=== PATIENT | male | born 1975 | race Caucasian/White ===

== ENCOUNTER 2018-11-06 09:14 | Emergency (ER) | payer OTHER ==
[2018-11-06 09:21] VITALS: BP 150/100; PULSE 78; TEMP 98; BMI 28.8
[2018-11-06] MEDS ORDERED: KETOROLAC TROMETHAMINE 60 MG/2 ML VIAL IM ONE (09:53)
[2018-11-06] MEDS ORDERED: KETOROLAC TROMETHAMINE 60 MG/2 ML VIAL ONE (10:01)
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
== END 2018-11-06 10:24 | disposition home or self-care (01) ==
LOC: JERFT 09:14
PROC: 3E0233Z Introduction of Anti-inflammatory into Muscle, Percutaneous Approach (ICD-10-PCS; principal; 2018-11-06)
DX: S13.4XXA Sprain of ligaments of cervical spine, initial encounter (principal); V49.49XA Driver injured in collision with other motor vehicles in traffic accident, initial encounter; Y92.414 Local residential or business street as the place of occurrence of the external cause; Y93.89 Activity, other specified; Y99.9 Unspecified external cause status
CPT/HCPCS: 99281-25

== ENCOUNTER 2021-03-20 16:03 | Emergency (ER) | payer OTHER ==
[2021-03-20 16:14] VITALS: TEMP 97.7; BMI 28.7
[2021-03-20] MEDS ORDERED: KETOROLAC TROMETHAMINE 30 MG/1 ML VIAL IVPUSH ONE (18:15)
[2021-03-20] MEDS ORDERED: SODIUM CHLORIDE 1,000 ML IV STA (18:16)
[2021-03-20] MEDS ORDERED: KETOROLAC TROMETHAMINE 30 MG/1 ML VIAL ONE (18:21)
[2021-03-20 18:53] LABS: EPI CELLS 2 /uL (0-25.1); HYALINE CASTS 0 /uL (0-3.1); PH,URINE 5.5 (5.0-8.0); URINE APPEARANCE CLEAR; URINE BACTERIA 1 /uL (0-1359); URINE BILIRUBIN NEGATIVE (NEGATIVE); URINE COLOR YELLOW; URINE GLUCOSE (UA) NEGATIVE (NEGATIVE); URINE KETONE TRACE (NEGATIVE); URINE LEUK ESTERASE NEGATIVE (NEGATIVE); URINE NITRITE NEGATIVE (NEGATIVE); URINE PROTEIN NEGATIVE (NEGATIVE); URINE RBC 35 /uL (0-23.9); URINE UROBILINOGEN 0.2 mg/dL (0.2-1.0); URINE WBC 1 /uL (0-25.8)
[2021-03-20 19:15] LABS: BASO % 0.2 % (0-2.0); EOS % 0.2 % (0-4.5); HEMATOCRIT 45.4 % (35.4-49); HEMOGLOBIN 15.5 GM/dL (11.7-16.9); MCH 32.9 pg (25.7-33.7); MCHC 34.1 g/dl (32.0-35.9); MEAN CELL VOLUME 96.3 fl (80-96); MONO % 8.4 % (3.8-10.2); NEUT % 75.2 % (42.8-82.8); PLATELET COUNT 276 10^3/uL (134-434); RBC 4.71 M/mm3 (4.00-5.60); RDW 13.8 % (11.9-15.9); WHITE BLOOD COUNT 10.9 K/mm3 (4.0-10.0)
[2021-03-20] MEDS ORDERED: FAMOTIDINE 20 MG TABLET PO ONE (19:15)
[2021-03-20] MEDS ORDERED: MAG HYDROX/AL HYDROX/SIMETH -MYLANTA- ORAL SUSPENSION PO ONE (19:16)
[2021-03-20] MEDS ORDERED: MAG HYDROX/AL HYDROX/SIMETH 30 ML UNIT-DOSE CUP ONE (19:21)
[2021-03-20] MEDS ORDERED: FAMOTIDINE 20 MG TABLET ONE (19:21)
[2021-03-20 19:37] LABS: ALBUMIN 4.1 g/dl (3.4-5.0); CALCIUM 9.5 mg/dL (8.5-10.1)
[2021-03-20 19:38] LABS: BLOOD UREA NITROGEN 10.7 mg/dL (7-18)
[2021-03-20 19:40] LABS: CREATININE 1.1 mg/dL (0.55-1.3)
[2021-03-20 19:42] LABS: BILIRUBIN,TOTAL 0.3 mg/dL (0.2-1); TOT PROT 7.9 g/dl (6.4-8.2)
[2021-03-20] MEDS ORDERED: ACETAMINOPHEN INJECTION 100 ML IVPB ONE (20:19)
[2021-03-20] MEDS ORDERED: ACETAMINOPHEN 1000 MG/100 ML VIAL IVPB ONE (20:19)
[2021-03-20 20:41] VITALS: BP 135/94; PULSE 74
== END 2021-03-20 20:49 | disposition home or self-care (01) ==
LOC: JERFT 16:03
PROC: 3E033NZ Introduction of Analgesics, Hypnotics, Sedatives into Peripheral Vein, Percutaneous Approach (ICD-10-PCS; principal; 2021-03-20)
PROC: 3E0333Z Introduction of Anti-inflammatory into Peripheral Vein, Percutaneous Approach (ICD-10-PCS; 2021-03-20)
PROC: 3E0337Z Introduction of Electrolytic and Water Balance Substance into Peripheral Vein, Percutaneous Approach (ICD-10-PCS; 2021-03-20)
DX: R30.0 Dysuria (principal); R10.9 Unspecified abdominal pain
CPT/HCPCS: 36415; 74176-TC; 80053; 81003; 85025; 87086; 87491; 87591; 99285-25; J0131

== ENCOUNTER 2021-10-09 04:07 | Day surgery (SDC) | payer OTHER ==
[2021-10-07 15:47] VITALS: BMI 28.4
[2021-10-09] MEDS ORDERED: DEXAMETHASONE SOD PHOSPHATE 4 MG/1 ML VIAL ONE ×2 (07:19→07:58)
[2021-10-09] MEDS ORDERED: LIDOCAINE HCL/PF 1% SDV 5ML VIAL ONE (07:19)
[2021-10-09] MEDS ORDERED: LIDOCAINE HCL 1% PRESERVATIVE FREE - 30ML VIAL IJ ONE ×3 (08:00→08:22)
[2021-10-09] MEDS ORDERED: IOHEXOL 180 MG/1 ML ML IJ ONE ×3 (08:00→08:23)
[2021-10-09] MEDS ORDERED: DEXAMETHASONE SOD PHOSPHATE 4 MG/1 ML VIAL IVPUSH ONE ×3 (08:01→08:23)
[2021-10-09 08:47] VITALS: TEMP 98.8
[2021-10-09 09:16] VITALS: BP 129/77; PULSE 66
== END 2021-10-09 09:00 | disposition home or self-care (01) ==
LOC: JASU-SURG 04:07
PROVIDERS: ATTEND Pain Medicine Pain Medicine
PROC: 3E0R33Z Introduction of Anti-inflammatory into Spinal Canal, Percutaneous Approach (ICD-10-PCS; principal; 2021-10-09 08:00)
DX: M54.16 Radiculopathy, lumbar region (principal)
CPT/HCPCS: 76000-TC-FY

== ENCOUNTER 2021-12-04 04:07 | Day surgery (SDC) | payer OTHER ==
[2021-12-01 17:35] VITALS: BMI 28.4
[~2021-12-04 04:07] MED LIST: BUPIVACAINE HCL/PF 0.75% 10 ML VIAL NR ONE; LIDOCAINE HCL 1% PRESERVATIVE FREE - 30ML VIAL INF ONE
[2021-12-04] MEDS ORDERED: LIDOCAINE HCL/PF 1% SDV 5ML VIAL ONE (08:01)
[2021-12-04] MEDS ORDERED: BUPIVACAINE HCL/PF 0.75% 10 ML VIAL ONE (08:01)
[2021-12-04 08:45] VITALS: RESP 18
[2021-12-04] MEDS ORDERED: LIDOCAINE HCL 1% PRESERVATIVE FREE - 30ML VIAL INF ONE (11:24)
[2021-12-04] MEDS ORDERED: BUPIVACAINE HCL/PF 0.75% 10 ML VIAL NR ONE (11:26)
[2021-12-04 11:47] VITALS: PULSE 58
[2021-12-04 12:09] VITALS: BP 125/83; TEMP 98.1
== END 2021-12-04 12:09 | disposition home or self-care (01) ==
LOC: JASU-SURG 04:07
PROVIDERS: ATTEND Pain Medicine Pain Medicine
PROC: 3E0T33Z Introduction of Anti-inflammatory into Peripheral Nerves and Plexi, Percutaneous Approach (ICD-10-PCS; 2021-12-04)
PROC: 3E0T3BZ Introduction of Anesthetic Agent into Peripheral Nerves and Plexi, Percutaneous Approach (ICD-10-PCS; principal; 2021-12-04 10:00)
DX: M47.816 Spondylosis without myelopathy or radiculopathy, lumbar region (principal)
CPT/HCPCS: 76000-TC-FY

== ENCOUNTER 2022-11-23 05:17 | Day surgery (SDC) | payer OTHER ==
[2022-11-17 14:12] VITALS: BMI 28.8
[~2022-11-23 05:17] MED LIST changes: +LIDOCAINE HCL 1% PRESERVATIVE FREE - 30ML VIAL IJ ONE; -LIDOCAINE HCL 1% PRESERVATIVE FREE - 30ML VIAL INF ONE
[2022-11-23] MEDS ORDERED: BUPIVACAINE HCL/PF 0.75% 10 ML VIAL ONE (07:31)
[2022-11-23] MEDS ORDERED: LIDOCAINE HCL/PF 1% SDV 5ML VIAL ONE (07:31)
[2022-11-23 08:49] VITALS: RESP 18
[2022-11-23] MEDS ORDERED: LIDOCAINE HCL 1% PRESERVATIVE FREE - 30ML VIAL IJ ONE (10:34)
[2022-11-23] MEDS ORDERED: BUPIVACAINE HCL/PF 0.75% 10 ML VIAL NR ONE (10:36)
[2022-11-23 11:16] VITALS: TEMP 97.8
[2022-11-23 11:19] VITALS: BP 127/76; PULSE 68
[2022-11-23] MEDS ORDERED: ACETAMINOPHEN 500 MG TABLET (FP) PO PRN (19:44)
== END 2022-11-23 11:10 | disposition home or self-care (01) ==
LOC: JASU-SURG 05:17
PROVIDERS: ATTEND Pain Medicine Pain Medicine
PROC: 3E0T33Z Introduction of Anti-inflammatory into Peripheral Nerves and Plexi, Percutaneous Approach (ICD-10-PCS; 2022-11-23)
PROC: 3E0T3BZ Introduction of Anesthetic Agent into Peripheral Nerves and Plexi, Percutaneous Approach (ICD-10-PCS; principal; 2022-11-23 10:30)
DX: M47.816 Spondylosis without myelopathy or radiculopathy, lumbar region (principal)
CPT/HCPCS: 76000-TC-FY